=== PATIENT | male | born 1970 | race Two or more races ===

== ENCOUNTER 2024-08-12 20:30 | Emergency (ER) | payer MEDICAID ==
[~2024-08-12] VITALS: Ht 175.3 cm; Wt 68.0 kg
[2024-08-13] MEDS: KETOROLAC TROMETHAMINE 30 MG INJ IM ONE
[2024-08-13 00:05] LABS: *BILIRUBIN,URIN NEGATIVE (NEGATIVE); *CLARITY,URINE CLEAR (CLEAR); *COLOR,URINE YELLOW (YELLOW); *KETONES,URINE NEGATIVE (NEGATIVE); *PROTEIN,URINE NEGATIVE (NEGATIVE); *UROBILINOGEN,URINE 0.2 E.U./dl (NORMAL); LEUKOCYTE ESTERASE ,URINE NEGATIVE (NEGATIVE); NITRITE, URINE NEGATIVE (NEGATIVE); UGLUCOSE NEGATIVE (NEGATIVE)
[2024-08-13 00:07] LABS: *BLOOD, URINE TRACE (NEGATIVE)
[2024-08-13 00:49] LABS: BACTERIA,URINE NONE SEEN /HPF (NONE SEEN); RBC,URINE 0-3 /HPF (0-3); SQUAMOUS EPITHELIAL CELL,UR FEW /HPF (NONE SEEN); WBC,URINE NONE SEEN /HPF (0-3)
[2024-08-13] MEDS ORDERED: KETOROLAC TROMETHAMINE 30 MG INJ ONE (00:56)
[2024-08-13] MEDS ORDERED: HYDR-3980 PO ×2 (01:23→16:19)
[2024-08-13] MEDS ORDERED: ONDA4TAB11 PO (01:23)
[2024-08-13] MEDS ORDERED: CYCL10TA9 PO (01:23)
[2024-08-13 01:37] VITALS: BP 135/96; TEMP 98.2; O2SAT 97
[2024-08-13] MEDS ORDERED: METH-806 PO (16:19)
[2024-08-13] MEDS ORDERED: ONDA4TAB5 PO (16:19)
== END 2024-08-13 01:37 | disposition home or self-care (01) ==
LOC: EDSEX 20:30 → ER 20:30
DX: M54.6 Pain in thoracic spine (principal); R10.9 Unspecified abdominal pain
CPT/HCPCS: 99285; 72128; 81001; 74176; 96372; J1885; A4606; A4663